=== PATIENT | male | born 1970 ===

== ENCOUNTER 2018-05-10 10:12 | Emergency (ER) | payer MEDICAID ==
[2018-05-10 10:19] VITALS: RESP 18; BMI 18.4
--- NOTE | 2018-05-10 11:55 | ED PDOC ---
Arrival/HPI - General Historian: Patient - History of Present Illness Narrative History of Present Illness (Text): 05/10/18 12:13 Patient is a 48-year-old male with a past medical history of HIV, on retroviral therapy, hypertension, alcohol abuse. Presented to [facility] on May 10 With complaints of right hand numbness on going for two days. Patient reported he first noticed the distal aspect of his fingertips along the Trevino aspect and all five fingers were numb this past Wednesday. Patient denies any trauma to his hands, or any inciting event. Denies any weakness associated with his right upper extremity. States that right hand initially presented with pins and needles; and has now evolved to diminish sensation. Denies any complaints associated with his left upper extremity. Past medical history as above Past surgical history: patient reports Cervical spine surgery to correct the cervical spine fracture, five years ago Social history: reports drinking five beers daily, denies tobacco, denies illicit drug use Allergies: no known drug allergies Medications: Gemvoya, losartan-hctz 50-12.5 QD, <Williams Amaro - Last Filed: 05/10/18 12:46> <Brandy Christiansen - Last Filed: 05/10/18 12:53> - General Chief Complaint: Finger,Hand,&Wrist Time Seen by Provider: 05/10/18 10:20 Past Medical History - Provider Review Nursing Documentation Reviewed: Yes - Cardiac Hx Hypertension: Yes - Hematological/Oncological Other/Comment: HIV - Psychiatric Hx Substance Use: No - Surgical History Other/Comment: Spinal cord sx 5 years ago - Anesthesia Hx Anesthesia: Yes <Williams Amaro - Last Filed: 05/10/18 12:46> Family/Social History - Physician Review Nursing Documentation Reviewed: Yes Family/Social History: Unknown Family HX Smoking Status: Light Smoker < 10 Cigarettes Daily Hx Alcohol Use: Yes Frequency of alcohol use: Socially Hx Substance Use: No <Williams Amaro - Last Filed: 05/10/18 12:46> Allergies/Home Meds <Williams Amaro - Last Filed: 05/10/18 12:46> <Brandy Christainsen - Last Filed: 05/10/18 12:53> Allergies/Adverse Reactions: Allergies No Known Allergies Allergy (Verified 05/10/18 10:20) Review of Systems - Review of Systems Constitutional: Normal Eyes: Normal ENT: Normal Respiratory: Normal Cardiovascular: Normal Gastrointestinal: Normal Genitourinary Male: Normal Musculoskeletal: Normal Skin: Normal Neurological: Other (As per HPI) Endocrine: Normal Hemo/Lymphatic: Normal Psychiatric: Normal <Williams Amaro - Last Filed: 05/10/18 12:46> Physical Exam Vital Signs Temp Pulse Resp BP Pulse Ox 05/10/18 10:19 98.0 F 116 H 18 144/105 H 98 Temperature: Afebrile Blood Pressure: Hypertensive Pulse: Tachycardic Appearance: Positive for: Well-Appearing, Non-Toxic Pain Distress: None Mental Status: Positive for: Alert and Oriented X 3 - Systems Exam Head: Present: Atraumatic, Normocephalic Pupils: Present: PERRL Extroacular Muscles: Present: EOMI Conjunctiva: Present: Normal Ears: Present: Normal Mouth: Present: Moist Mucous Membranes Respiratory/Chest: Present: Clear to Auscultation, Good Air Exchange Cardiovascular: Present: Regular Rate and Rhythm, Normal S1, S2 Abdomen: Present: Normal Bowel Sounds Upper Extremity: Present: Normal Inspection, NORMAL PULSES, Capillary Refill < 2s Lower Extremity: Present: Normal Inspection, NORMAL PULSES Neurological: Present: Other (Sensation intact in Trevino as well as dorsal aspect. No sensation deficit appreciated along dorsal aspect of right hand.Fingertips of right hand with diminished sensation compared to left hand. Good discrimination to dull and pinprick sensation, no deficit appreciated in right handHand strength intact bilaterally gross upper extremity strength five out of five bilaterally. ) Skin: Present: Warm, Dry <Williams Amaro - Last Filed: 05/10/18 12:46> Vital Signs Temp Pulse Resp BP Pulse Ox 05/10/18 12:09 98 F 87 18 129/85 95 05/10/18 10:19 98.0 F 116 H 18 144/105 H 98 <Brandy Christiansen - Last Filed: 05/10/18 12:53> Medical Decision Making ED Course and Treatment: 05/10/18 12:22 no gross neurologic deficit appreciated on exam Right hand fingertips did show some diminish sensation compared to left Given consistent alcohol use, will check electrolytes magnesium level elevated, remainder of electrolytes are unremarkable recommend patient to follow up with outpatient primary care doctor recommend patient to follow up with neurology as outpatient given prior Neurosurgical procedure, patient may warrant follow with neurosurgery no neurovascular emergency appreciated at this time Patient was advised to refrain from consuming alcohol patient was advised to follow up with his primary care doctor patient was advised to start taking multivitamin and folic acid otc please follow up with primary care doctor within seven days if symptoms worsen or new concerning symptoms arise please return to nearest Emergency Department 05/10/18 12:30 <Williams Amaro - Last Filed: 05/10/18 12:46> - PA / RESIDENTIAL [employer]ING [employer] / Resident Statement PATI has reviewed & agrees with the documentation as recorded. PATI has examined the patient and agrees with the treatment plan. <Brandy Christiansen - Last Filed: 05/10/18 12:53> Disposition/Present on Arrival - Present on Arrival Any Indicators Present on Arrival: No History of DVT/PE: No History of Uncontrolled Diabetes: No Urinary Catheter: No History of Decub. Ulcer: No History Surgical Site Infection Following: None - Disposition Have Diagnosis and Disposition been Completed?: No Disposition Time: 12:34 Patient Plan: Discharge <Williams Amaro - Last Filed: 05/10/18 12:46> <Brandy Christiansen - Last Filed: 05/10/18 12:53> - Disposition Diagnosis: Right hand paresthesia, Alcohol abuse, Hypermagnesemia Disposition: HOME/ ROUTINE Patient Problems: Current Active Problems Problem Status Onset Hypermagnesemia Acute Alcohol abuse Acute Right hand paresthesia Acute Condition: GOOD Discharge Instructions (ExitCare): Paresthesias (DC), Effects of Alcohol on Your Health Referrals: Vira Steven MD [Family Provider] - Follow up with primary Forms: [employer] (Portuguese)
[2018-05-10 12:05] LABS: BLOOD UREA NITROGEN 9 mg/dL (7-21); CALCIUM 9.2 mg/dL (8.4-10.5); GFR NON-AFRICAN AMERICAN > 60
[2018-05-10 13:02] VITALS: BP 125/84; PULSE 84; TEMP 98.1; O2SAT 100
== END 2018-05-10 13:02 | disposition home or self-care (01) ==
LOC: ED 10:12
DX: R20.2 Paresthesia of skin (principal); F10.10 Alcohol abuse, uncomplicated; E83.41 Hypermagnesemia; I10 Essential (primary) hypertension; F17.210 Nicotine dependence, cigarettes, uncomplicated; Z21 Asymptomatic human immunodeficiency virus [HIV] infection status